=== PATIENT | female | born 1990 | race Caucasian/White ===

== ENCOUNTER → 2019-01-15 | Outpatient (CLI) | payer OTHER ==
--- NOTE | 2019-01-15 08:59 | Diagnostic Imaging Report ---
EXAMINATION: US Abdomen limited. TECHNIQUE: Multiple real-time grayscale images were obtained over the right upper quadrant in various projections. REASON FOR EXAM: NAUSEA WITH VOMITING.. COMPARISON: None. FINDINGS: The liver is normal in size and shape. The liver echogenicity is within normal limits. There are no focal lesions. No intrahepatic biliary dilatation is present. The common bile duct is not dilated and measures 5 mm. The main portal vein is hepatopedal. There is no evidence of cholelithiasis, gallbladder wall thickening or pericholecystic fluid. Sonographic Gomez's sign is negative. The visualized portion of the head of the pancreas are within normal limits. The body and tail of the pancreas are not well visualized due to overlying bowel gas. The visualized portions of the IVC and aorta appear normal. The right kidney measures approximately 11.1 cm in length and has a normal appearance. IMPRESSION: 1. No cholelithiasis or acute cholecystitis. No liver or gallbladder abnormality detected. Dictated by: Dictated on workstation # [id number]
== END ==
LOC: RAD 08:12
PROVIDERS: ATTEND Surgery
DX: R11.2 Nausea with vomiting, unspecified (principal)
CPT/HCPCS: 76705

== ENCOUNTER 2019-01-29 05:33 | Outpatient (CLI) | payer OTHER ==
[~2019-01-29] VITALS: Ht 175 cm; Wt 79.5 kg
[2019-01-29] MEDS ORDERED: CYCL10TA9 PO (11:27)
[2019-01-29] MEDS ORDERED: GABA-488 PO (11:27)
[2019-01-29] MEDS ORDERED: IBUP-1780 PO (11:27)
[2019-01-29] MEDS ORDERED: NORG1TAB14 PO (11:27)
== END 2019-01-29 11:34 ==
LOC: PREOP 05:33
PROVIDERS: ATTEND Surgery
DX: Z01.818 Encounter for other preprocedural examination (principal)

== ENCOUNTER → 2019-02-02 | Outpatient (CLI) | payer OTHER ==
[~2019-02-02] MED LIST: CATHETER FLUSH 10 ML SYR IV PRN; CYCL10TA9 PO; GABA-488 PO; IBUP-1780 PO; NORG1TAB14 PO
--- NOTE | 2019-02-02 12:06 | Diagnostic Imaging Report ---
EXAMINATION: Gallbladder scintigraphy. HISTORY: Right upper quadrant pain. COMPARISON: None available. TECHNIQUE: Anterior scintigraphic imaging of the abdomen was performed after the intravenous administration of 5.3 mCi Tc-99m Choletec. FINDINGS: The upper abdomen was imaged for 60 minutes with the gamma camera. There is prompt homogeneous uptake of radiopharmaceutical by the liver. There is activity in the common duct and gallbladder by 10 minutes. Small bowel activity is seen by 45 minutes. At 60 minutes, the patient received 8 ounces of Ensure. After an additional 30 minutes, the gallbladder ejection fraction was calculated to be 31% (normal is >35%) IMPRESSION: 1. Patent common and cystic bile ducts. 2. Mildly reduced gallbladder ejection fraction of 31% (normal is greater than 35%). Dictated by: Dictated on workstation # [id number]
== END ==
LOC: CARD 09:29 → EDUNIT# 10:00
PROVIDERS: ATTEND Surgery
DX: R11.2 Nausea with vomiting, unspecified (principal)
CPT/HCPCS: 78227

== ENCOUNTER 2019-02-05 07:10 | Day surgery (SDC) | payer OTHER ==
[~2019-02-05] VITALS: Ht 175 cm; Wt 79.5 kg
[~2019-02-05 07:10] MED LIST changes: -CATHETER FLUSH 10 ML SYR IV PRN
[2019-02-05] MEDS ORDERED: LACTATED RINGERS 1,000 ML IV STA (07:35)
[2019-02-05] MEDS ORDERED: LACTATED RINGERS 1,000 ML IV ONE (07:40)
[2019-02-05] MEDS ORDERED: HURRICAINE EXT TUBE (BENZOCAINE) XX PRN (07:45)
[2019-02-05 07:54] VITALS: BP 117/47
[2019-02-05] MEDS ORDERED: MIDAZOLAM 2 MG/2 ML (VERSED) VIAL ONE (08:00)
[2019-02-05] MEDS ORDERED: PROPOFOL INJECTION 50 ML IV ONE (08:00)
--- NOTE | 2019-02-05 08:06 | Progress Note-Pre Operative ---
Pre-Operative Progress Note H&P Reviewed The H&P was reviewed, patient examined and no changes noted. Time Seen by Provider: 07:59 Date H&P Reviewed: Feb 05, 2019 Time H&P Reviewed: 08:00 Pre-Operative Diagnosis: N/V, Epigastric pain, Rectal bleed NORMA ALEGRIA DO Feb 05, 2019 08:06
--- NOTE | 2019-02-05 08:37 | Progress Note-Post Operative ---
Post-Operative Progess Note Surgeon (s)/Student Assistance Counselor (s) Surgeon NORMA ALEGRIA DO Student Assistance Counselor: RANJIT Morales Pre-Operative Diagnosis N/V, Epigastric pain, Rectal bleed Post-Operative Diagnosis Gastritis Diverticula Internal Hemorrhoids Procedure & Operative Findings Date of Procedure 02/05/19 Procedure Performed/Findings EGD with bx Colon Anesthesia Type IV Sedation by GENERAL LITHOGRAPHIC WORKER Estimated Blood Loss Estimated blood loss (mL): scant Specimens/Packing Specimens Removed Antral bx Body of stomach bx NORMA ALEGRIA DO Feb 05, 2019 08:37
--- NOTE | 2019-02-05 08:39 | Endoscopy Discharge Instruct ---
Endo Procedure/Findings Findings 1.: Gastritis 2.: Diverticulosis 3.: Internal Hemorrhoids Discharge Instructions - Activity: You might feel a little sleepy until tomorrow. This is due to the medicine you received to relax you. Until tomorrow, you should: NOT drive a car, operate machinery or power tools. NOT drink any alcoholic beverages. NOT make any important decisions or sign importortant papers. Do not return to work until tomorrow, unless otherwise instructed. Resume previous activities tomorrow. Diet: Start by taking liquids. If you tolerate liquids, advance to solid food. make an appointment for one week Notify Physician - If you experience excessive bleeding, unusual abdominal pain, fever, or chest pain, contact your doctor immediately. NORMA ALEGRIA DO Feb 05, 2019 08:39
[2019-02-05 08:40] VITALS: BP 121/72
[2019-02-05 08:45] VITALS: BP_SYST 102; BP_SYST 109; BP_DIAS 67; BP_DIAS 76
[2019-02-05 09:15] VITALS: BP 106/73
[2019-02-05 09:35] VITALS: BP 106/73
--- NOTE | 2019-02-05 12:42 | Anesthesia-General Post-Op ---
MAC Patient Condition Mental Status/LOC: Same as Preop Cardiovascular: Satisfactory Nausea/Vomiting: Absent Respiratory: Satisfactory Pain: Controlled Complications: Absent Post Op Complications Complications None Follow Up Care/Instructions Patient Instructions None needed. Anesthesiology Discharge Order Discharge Order Patient is doing well, no complaints, stable vital signs, no apparent adverse anesthesia problems. No complications reported per nursing. MARCI PHELAN CRNA Feb 05, 2019 12:42
--- NOTE | 2019-02-05 23:00 | OPERATIVE REPORT ---
DATE OF SERVICE: PREOPERATIVE DIAGNOSES: Epigastric pain, nausea, vomiting and rectal bleed. POSTOPERATIVE DIAGNOSES: Gastritis, diverticula and internal hemorrhoids. PROCEDURES: 1. EGD with biopsy. 2. Colonoscopy. SURGEON: Erik Decker DO. EMD TEACHER: Parveen Chun MS-3 ANESTHESIA: IV sedation by SECTIONIZER. SPECIMEN: Biopsy from the antrum and one biopsy of body of stomach. BLOOD LOSS: Scant. FLUIDS: Per anesthesia. POSTOPERATIVE CONDITION: Stable. INDICATION FOR PROCEDURE: The patient is a 28-year-old female who has been having some epigastric abdominal pain and nausea and vomiting as well she noted episode of rectal bleeding, needed a workup. FINDINGS: The patient had some mild gastritis in the antrum and body of stomach. She had small diverticula and then she had some internal hemorrhoids. No other obvious pathology. PROCEDURE NOTE: After informed consent was obtained, the patient was brought to the endoscopy suite and placed in bed in the left lateral decubitus position. She was administered IV sedation by the SECTIONIZER who then monitored her vitals the entire time, heart rate, blood pressure and pulse ox and the scope was inserted, started with the EGD, placed the scope down the mouth through the esophagus into the stomach. In the antrum, noted some gastritis, took a picture and then pushed into the duodenum. Duodenum looked fine. Pulled back and did a biopsy of the body and the antrum and then in the body of stomach, retroflexed the scope, did not see any hiatal hernia, took a picture; taken a picture of the GE junction. On the way in, it looked good and at this point, suctioned out all the air and then pulled the scope up the esophagus and out the mouth. Switched camera, switched gloves, went down below, started the colonoscopy pushed in to about 130 cm, able to get all the way to cecum, took a picture of appendiceal orifice, noted the ileocecal valve and then slowly withdrew the scope insufflating to look circumferentially at the matthews looking the cecum, up the ascending colon to the hepatic flexure, down the transverse colon, splenic flexure, into the descending colon. In the sigmoid colon, saw one small diverticula, took a picture of this and then down into the rectum, retroflexed the rectal vault, saw some very minimal internal hemorrhoids, most likely this is the cause of her bleeding. Removed the scope. The patient tolerated the procedure, recovered in endoscopy suite. Job ID: [id number] DocumentID: [id number] Dictated Date: 02/05/2019 14:25:07 Meat Lugger Date: 02/05/2019 22:59:42 Dictated By: ERIK DECKER DO
== END 2019-02-05 09:35 | disposition home or self-care (01) ==
LOC: ENDO 07:10
PROVIDERS: ATTEND Surgery
DX: K29.70 Gastritis, unspecified, without bleeding (principal); K57.30 Diverticulosis of large intestine without perforation or abscess without bleeding; K64.8 Other hemorrhoids; G62.9 Polyneuropathy, unspecified; G40.909 Epilepsy, unspecified, not intractable, without status epilepticus; G89.4 Chronic pain syndrome; Z79.899 Other long term (current) drug therapy
CPT/HCPCS: 84703

== ENCOUNTER 2019-03-09 11:27 | Outpatient (CLI) | payer OTHER ==
[~2019-03-09] VITALS: Ht 175 cm; Wt 79.5 kg
[~2019-03-09 11:27] MED LIST changes: +ASCO1TAB39 PO; +MELA5CAP PO; +POLY17PO6 PO
== END 2019-03-09 11:49 | disposition home or self-care (01) ==
LOC: PREOP 11:27
PROVIDERS: ATTEND Surgery
DX: Z01.818 Encounter for other preprocedural examination (principal)